=== PATIENT | female | born 1945 | race Caucasian/White ===

== ENCOUNTER 2017-03-11 20:03 | Inpatient (IN) | payer OTHER, MEDICAID ==
[~2017-03-11] VITALS: Ht 149.9 cm; Wt 114.5 kg
[2017-03-11] MEDS ORDERED: METFORMIN HCL1000 MG PO (20:45)
[2017-03-11] MEDS ORDERED: NOR5 PO (20:46)
[2017-03-11 20:47] LABS: BASOPHIL % 0.3 % (0-2); PLATELET COUNT 192 x10^3mcL (130-400); RED CELL DISTRIBUTION WIDTH 18.2 % (11.5-14.5)
[2017-03-11] MEDS ORDERED: LOSARTAN POTASS1 TA6 PO (20:47)
[2017-03-11] MEDS ORDERED: DICLOFENAC SODI75 MG PO (20:47)
[2017-03-11] MEDS ORDERED: DEPAKOTE ER250 M1 PO (20:48)
[2017-03-11 20:49] LABS: CALCIUM 9.3 mg/dL (8.5-10.1); CARBON DIOXIDE 23.7 mmol/L (21-32); CHLORIDE SERUM 103 mmol/L (98-107); CREATININE SERUM 0.9 mg/dL (0.6-1.0); GLUCOSE SERUM 224 mg/dL (74-106); POTASSIUM SERUM 3.7 mmol/L (3.5-5.1); SODIUM SERUM 138 mmol/L (136-145)
[2017-03-11] MEDS ORDERED: ZOLOFT50 MG PO (20:49)
[2017-03-11] MEDS ORDERED: ADV100/50 INH (20:50)
[2017-03-11] MEDS ORDERED: CRESTOR20 M1 PO (20:50)
[2017-03-11] MEDS ORDERED: PROVENTIL0.09 MG/A1 INH (20:53)
[2017-03-11 20:54] LABS: ALKALINE PHOSPHATASE 109 U/L (46-116); ALT/SGPT 32 U/L (14-59); AST/SGOT 37 U/L (15-37); BILIRUBIN TOTAL 0.74 mg/dL (0.20-1.00); TOTAL PROTEIN, SERUM 7.4 g/dL (6.4-8.2)
[2017-03-11 20:57] LABS: ALBUMIN 3.3 g/dL (3.4-5.0)
[2017-03-11 21:18] LABS: CK-MB < 0.5 ng/mL (0-3.6); CREATINE KINASE 55 U/L (26-192)
[2017-03-11 22:08] LABS: UA SPECIFIC GRAVITY 1.025 (1.005-1.035); microscopic required? YES; urine erythrocyte 1+ (NEGATIVE)
[2017-03-12] VITALS (7 sets, daily range): BP systolic 116–137; BP diastolic 59–84; Ht 149.9 cm; Wt 114.5 kg
[2017-03-12] MEDS ORDERED: METFORMIN HCL500 MG PO (01:05)
[2017-03-12 01:58] LABS: CHOLESTEROL/HDL RATIO 3.5
[2017-03-12 02:05] LABS: FREE T4 1.02 ng/dL (0.76-1.46); FREE THYROXINE INDEX 2.4 ug/dL (1.4-4.5); T4(THYROXINE) 8.4 ug/dL (4.7-13.3)
[2017-03-12 04:14] LABS: PLATELET COUNT 168 x10^3mcL (130-400)
[2017-03-12 04:21] LABS: BASOPHIL % 0 % (0-2); RED CELL DISTRIBUTION WIDTH 17.6 % (11.5-14.5)
[2017-03-12 04:21] LABS: T3 TOTAL 0.92 ng/mL
[2017-03-12 04:30] LABS: CALCIUM 9.1 mg/dL (8.5-10.1); CARBON DIOXIDE 26.8 mmol/L (21-32); CHLORIDE SERUM 103 mmol/L (98-107); CREATININE SERUM 0.8 mg/dL (0.6-1.0); GLUCOSE SERUM 251 mg/dL (74-106); MAGNESIUM 1.8 mg/dL (1.8-2.4); PHOSPHOROUS 3.4 mg/dL (2.5-4.9); POTASSIUM SERUM 3.8 mmol/L (3.5-5.1); SODIUM SERUM 137 mmol/L (136-145)
[2017-03-13 05:30] VITALS: BP 131/71
[2017-03-13 06:28] LABS: PLATELET COUNT 205 x10^3mcL (130-400)
[2017-03-13 06:35] LABS: BASOPHIL % 0 % (0-2); RED CELL DISTRIBUTION WIDTH 17.4 % (11.5-14.5)
[2017-03-13 06:57] LABS: CALCIUM 9.3 mg/dL (8.5-10.1); CARBON DIOXIDE 24.8 mmol/L (21-32); CHLORIDE SERUM 104 mmol/L (98-107); CREATININE SERUM 0.8 mg/dL (0.6-1.0); GLUCOSE SERUM 197 mg/dL (74-106); MAGNESIUM 1.9 mg/dL (1.8-2.4); PHOSPHOROUS 3.1 mg/dL (2.5-4.9); POTASSIUM SERUM 4.2 mmol/L (3.5-5.1); SODIUM SERUM 139 mmol/L (136-145)
[2017-03-13 10:15] VITALS: BP 130/64
[2017-03-13] MEDS ORDERED: MEDDP PO (11:42)
[2017-03-13 13:08] VITALS: BP 126/63
[2017-03-13] MEDS ORDERED: ZIT250 PO (13:53)
[2017-03-13] MEDS ORDERED: LAC PO (13:53)
[2017-03-13 18:25] VITALS: BP 117/56
[2017-03-13 18:41] VITALS: BP 117/56
== END 2017-03-13 19:22 | disposition home or self-care (01) | DRG 205 ==
LOC: ED 20:03 → DU 23:17
PROVIDERS: Emergency Medicine; ADMIT Family Medicine
DX: M94.0 Chondrocostal junction syndrome [Tietze] (principal); N17.0 Acute kidney failure with tubular necrosis; J45.901 Unspecified asthma with (acute) exacerbation; Z68.43 Body mass index [BMI] 50.0-59.9, adult; E11.65 Type 2 diabetes mellitus with hyperglycemia; E11.59 Type 2 diabetes mellitus with other circulatory complications; I10 Essential (primary) hypertension; E78.5 Hyperlipidemia, unspecified; G43.909 Migraine, unspecified, not intractable, without status migrainosus; F32.9 Major depressive disorder, single episode, unspecified; F41.8 Other specified anxiety disorders; M79.604 Pain in right leg; G89.29 Other chronic pain; E66.01 Morbid (severe) obesity due to excess calories; Z79.84 Long term (current) use of oral hypoglycemic drugs
CPT/HCPCS: 36600; 82962; 83880; 84439; J0696; J2920; J2930; J7030; J7613; J7620; J7626; J7644; Q0092

== ENCOUNTER 2018-04-02 20:02 | Emergency (ER) | payer OTHER, MEDICAID ==
[~2018-04-02] VITALS: Ht 152.4 cm; Wt 114.3 kg
[~2018-04-02 20:02] MED LIST: ADV100/50 INH; CRESTOR20 M1 PO; DEPAKOTE ER250 M1 PO; DICLOFENAC SODI75 MG PO; LAC PO; LOSARTAN POTASS1 TA6 PO; MEDDP PO; METFORMIN HCL1000 MG PO; METFORMIN HCL500 MG PO; NOR5 PO; PROVENTIL0.09 MG/A1 INH; ZIT250 PO; ZOLOFT50 MG PO
[2018-04-02 20:08] VITALS: Ht 152.4 cm; Wt 114.3 kg
[2018-04-02 23:07] VITALS: BP 155/87
== END 2018-04-02 23:07 | disposition home or self-care (01) ==
LOC: ED 20:02
DX: R07.89 Other chest pain (principal); R22.2 Localized swelling, mass and lump, trunk; J45.909 Unspecified asthma, uncomplicated; I10 Essential (primary) hypertension; E11.9 Type 2 diabetes mellitus without complications; F41.9 Anxiety disorder, unspecified; F32.9 Major depressive disorder, single episode, unspecified; E78.00 Pure hypercholesterolemia, unspecified; Z88.0 Allergy status to penicillin; Z88.1 Allergy status to other antibiotic agents
CPT/HCPCS: J1885

== ENCOUNTER 2018-08-29 14:39 | Emergency (ER) | payer OTHER, MEDICAID ==
[~2018-08-29] VITALS: Ht 142.2 cm; Wt 108.4 kg
[2018-08-29 14:42] VITALS: Ht 142.2 cm; Wt 108.4 kg
[2018-08-29 15:41] LABS: BASOPHIL % 0.4 % (0-2); PLATELET COUNT 312 x10^3mcL (130-400)
[2018-08-29 15:44] LABS: RED CELL DISTRIBUTION WIDTH 17.9 % (11.5-14.5)
[2018-08-29 15:46] LABS: CARBON DIOXIDE 25.3 mmol/L (21-32); CHLORIDE SERUM 100 mmol/L (98-107); CREATININE SERUM 0.8 mg/dL (0.6-1.0); GLUCOSE SERUM 160 mg/dL (74-106); POTASSIUM SERUM 3.8 mmol/L (3.5-5.1); SODIUM SERUM 135 mmol/L (136-145)
[2018-08-29 15:49] LABS: ALBUMIN 2.6 g/dL (3.4-5.0); ALKALINE PHOSPHATASE 145 U/L (46-116); ALT/SGPT 88 U/L (14-59); AST/SGOT 53 U/L (15-37); BILIRUBIN TOTAL 0.5 mg/dL (0.20-1.00); CHOLESTEROL 164 mg/dL (<200); HDL CHOLESTEROL 42 mg/dL (40-60); TOTAL PROTEIN, SERUM 7.5 g/dL (6.4-8.2)
[2018-08-29 16:43] LABS: microscopic required? YES; urine erythrocyte NEGATIVE (NEGATIVE)
[2018-08-29 17:51] VITALS: BP 148/90
== END 2018-08-29 17:51 | disposition home or self-care (01) ==
LOC: ED 14:39
PROVIDERS: Emergency Medicine
DX: J45.909 Unspecified asthma, uncomplicated (principal); J06.9 Acute upper respiratory infection, unspecified; I10 Essential (primary) hypertension; E11.9 Type 2 diabetes mellitus without complications; F32.9 Major depressive disorder, single episode, unspecified; E78.00 Pure hypercholesterolemia, unspecified; G89.29 Other chronic pain; M79.606 Pain in leg, unspecified; Z88.0 Allergy status to penicillin; Z88.1 Allergy status to other antibiotic agents
CPT/HCPCS: 87804; J2930; J7613; J7644; Q0092